=== PATIENT | female | born 1995 | race Caucasian/White ===

== ENCOUNTER 2016-08-09 21:04 | Emergency (ER) | payer OTHER ==
[~2016-08-09] VITALS: Ht 165.1 cm; Wt 75.0 kg
[~2016-08-09 21:04] MED LIST: LACT10SO27 PO; ONDA8TAB10 PO
[2016-08-09 21:09] VITALS: BP 118/70; PULSE 96; RESP 16; O2SAT 96
--- NOTE | 2016-08-09 21:55 | ED.REPORT ---
HPI- Female Date of Service Aug 09, 2016 ED Provider: Ben Ulloa MD Pt is a healthy 21 y/o female presenting to the ED c/o left flank pain and dysuria onset today. She c/o associated nausea. She denies vomiting, diarrhea, fever, chills, hematuria. Pt denies any history of STI. She has had UTI's previously with similar symptoms. Nursing Notes Stated Complaint: BACK PAIN, PAINFUL WHEN URINATING Chief Complaint: Female Abdominal Pain Nursing Notes Reviewed: Yes Allergies: Coded Allergies: Penicillins (Verified Allergy, Unknown, 08/09/16) Scheduled PRN Phenazopyridine (Phenazopyridine) 100 Mg Tablet 100 MG PO TID PRN PRN For Pain General Time Seen by MD: 21:54 Chief Complaint Dysuria Hx Obtained From: Patient Arrived By: Walk-in Sudden in Onset?: No Onset Occurred: 5 - 8 hours ago Symptom Duration: Since onset Location: : Flank left Quality: Painful Radiation: Does not radiate Severity: Current: Mild Severity: Maximum: Mild Recent Healthcare: Previous diagnosis Similar Sx Previous: Yes Past Medical History Past Medical History Constipation Past Surgical History None Smoking History Never Smoker Social History Other Social History: , Local resident Ambulatory Status Independent Review of Systems Constitutional: Denies: Chills, Fever GI: Reports: Nausea, Denies: Diarrhea, Vomiting Female: Reports: Dysuria, Flank pain, Denies: Hematuria Complete sys rev & neg: except as marked. Physical Exam Initial Vital Signs Vital Signs (First) Date Time Temp Pulse Resp B/P Pulse Ox O2 Delivery O2 Flow Rate FiO2 08/09/16 21:09 36.4 96 16 118/70 96 Room Air Initial VS: Reviewed, Vital signs normal Head / Eyes: Atraumatic, Normocephalic, PERRL ENT: Mucous membranes moist, Conjunctiva normal, No scleral icterus Neck: Supple, Full range of motion Respiratory: Breath sounds normal, Clear to auscultation, No respiratory distress Cardiovascular: Regular rate & rhythm, Heart sounds normal, Intact distal pulses Extremities: Vascular intact, Neuro intact, No swelling, No tenderness Skin: Warm, Dry, No cyanosis Neurologic: Alert, Oriented, Nonfocal Psychiatric: Mood/affect normal, Behavior normal, Normal thought content Female Genitourinary: Exam deferred General/Constitutional: Awake, Alert, No acute distress, Well appearing, Cooperative, Not toxic appearing Abdomen: Atraumatic, Soft, No guarding, No rebound, No distention, No palpable mass Tenderness/Guarding/Rebound: Positive: Tender flank L Back: Full range of motion, Painless range of motion Mild left CVAT Interpretation & Diagnostics Lab Results Interpretation Test 08/09/16 22:15 Urine Color Yellow (YELLOW) Urine Appearance Clear (CLEAR,HAZY) Urine pH 6.0 (5.0-8.0) Urine Specific [place] 1.030 (1.003-1.035) Urine Protein Negativemg/dL (NEG,TRACE) Urine Glucose (UA) Negativemg/dL (NEGATIVE) Urine Ketones Tracemg/dL (NEGATIVE) Urine Occult Blood Negative (NEGATIVE) Urine Nitrite Negative (NEGATIVE) Urine Bilirubin Negative (NEGATIVE) Urine Urobilinogen Normalmg/dL (NORMAL) Urine Leukocyte Esterase Negative (NEGATIVE) Urine RBC 0-2/hpf (0-2) Urine WBC 0-5/hpf (0-5) Urine Epithelial Cells Moderate/hpf (NONE-MOD) Urine Crystals None seen (NONE SEEN) Urine Bacteria Few/hpf (NONE-FEW) Urine Hyaline Casts Rare/lpf (NONE) Urine Granular Casts None seen (NONE SEEN) Urine Waxy Casts None seen (NONE SEEN) Urine Red Blood Cell Casts None seen (NONE SEEN) Urine White Blood Cell Casts None seen (NONE SEEN) Urine Mucus Present (None Seen) Urine Trichomonas None seen (NONE SEEN) Urine Yeast None (NONE SEEN) Urinalysis Comment None Urine Culture Reflexed Not indicated Re-Eval/Medical Decision Med Decision/Clinical Course Pt is a healthy 21 y/o female presenting to the ED c/o left flank pain and dysuria onset today. She c/o associated nausea. She denies vomiting, diarrhea, fever, chills, hematuria. Pt denies any history of STI. She has had UTI's previously with similar symptoms. Patient afebrile with stable vital signs and in no apparent distress. Urinalysis as below: Urine dip: ketones present, unconvincing for UTI Formal UA: unconvincing for UTI negative Presentation at this time unconvincing for urinary tract infection. Patient afebrile and nontoxic in appearance. Abdominal examination completely benign without any findings suggestive of acute surgical intra-abdominal process. No history of sexually transmitted infection or abnormal vaginal discharge. Suspect urethritis or very early urinary tract infection. Phenazopyridine prescribed for symptomatic management. Patient will follow up with her primary care doctor. She is advised to return right away should she develop any worsening or new symptoms. Follow precautions reviewed in detail and patient discharged in good condition. Re-Evaluation/Progress : Time of Eval: 22:59 Re-Evaluation/Progress Note: Pt rechecked. Informed pt of plan for treatment. Pt understands and agrees with plan for treatment. F/U instructions and RTER warnings given. All questions addressed. Counseled Regarding: Diagnosis, Lab results, Need for follow-up, When/why to return to ED Discharge & Departure Impression: Primary Impression: Flank pain Additional Impressions: Dysuria Urethritis Disposition: Home Discharge Condition All VS Reviewed: Yes Condition: Stable Patient Instructions: Acute Low Back Pain (ED) Additional Instructions: Thank you for seeking care at the emergency room. It is difficult for us to make definitive diagnoses in the ED but we believe that you are experiencing musculoskeletal flank pain. Our primary goal today in the ED was to evaluate you for any life-threatening conditions. Your evaluation was reassuring. Your urine analysis showed no signs of UTI. You will be discharged with a prescription for Phenazopyridine. Take this as directed. You should follow-up with your primary doctor in the next week. You should return to the ED immediately if you develop severe uncontrolled pain , fevers, vomiting, shortness of breath, chest pain, lightheadedness, weakness or any other concerning signs or symptoms. Thank you for letting us partake in your care today. Referrals: [facility] Scribe Attestation Portions of this note were transcribed by Rico Lux. I, Dr. Ulloa personally performed the history, physical exam and medical decision-making; I reviewed and confirmed the accuracy of the information in the transcribed note. Signed by Julianne Busch, 08/09/16 - [id number] Ben Ulloa MD Aug 09, 2016 21:55 RICO LUX Aug 09, 2016 22:32
[2016-08-09 22:24] LABS: APPEARANCE,URINE CLEAR (CLEAR,HAZY); COLOR,URINE YELLOW (YELLOW)
[2016-08-09 22:25] LABS: OCCULT BLOOD,URINE NEGATIVE (NEGATIVE); UROBILINOGEN,URINE NORMAL (NORMAL)
[2016-08-09] MEDS ORDERED: Phenazopyridine 97.5 mg Tablet PO ONE (23:00)
[2016-08-09] MEDS ORDERED: PHEN-773 PO (23:00)
[2016-08-09 23:12] VITALS: BP 120/72; PULSE 92; RESP 17; O2SAT 97
== END 2016-08-09 23:12 | disposition home or self-care (01) ==
LOC: SED 21:04
DX: N34.2 Other urethritis (principal); Z88.0 Allergy status to penicillin